=== PATIENT | female | born 1990 | race Two or more races ===

== ENCOUNTER 2019-04-01 09:19 | Emergency (ER) | payer SELFPAY ==
[2019-04-01 09:31] VITALS: BP 129/82; PULSE 100; RESP 20; TEMP 37.7; O2SAT 100
--- NOTE | 2019-04-01 11:48 | ED.URI ---
HPI - URI/Sore Throat General Chief Complaint: Upper Respiratory Infection Stated Complaint: COUGH/BURNING/CONGESTION/FEVER Source: patient and RN notes reviewed Mode of arrival: ambulatory Limitations: no limitations History of Present Illness HPI Narrative: The patient, a smoker/occasional drinker, presents with a 5-day history of chills and fever associated with scantily productive cough. No wheeze, earache, sore throat. Symptoms mild, worse upon awakening the morning Related Data Home Medications Medication Instructions Recorded Confirmed ibuprofen 200 mg PO Q6H PRN 04/01/19 04/01/19 [id number]-[id number]-guaifen 2 tablet PO Q4-6H PRN 04/01/19 04/01/19 [Cold and Flu Severe] Allergies Allergy/AdvReac Type Severity Reaction Status Date / Time No Known Allergies Allergy Verified 04/01/19 09:39 Review of Systems Review of Systems: Narrative: General/Constitutional: No weight loss,fever Eyes: N0: Redness,discharge Ears/Nose/Throat: No: Epistaxis,ear discharge Respiratory: Denies: Hemoptysis Gastrointestinal: No Vomiting, Bleeding-rectal Skin: No Lumps, eruption PMFSH Comments At time of signature, agree with nursing past medical, surgical, social and family history. There is no relevant family history pertinent to the presenting complaint Exam Narrative: Exam Narrative: General Appearance: Well nourished, Conjunctiva clear Ears: Auditory canal normal, TM normal Nose: Rhinorrhea, Mucousal erythema Throat/ neck: MM moist, Uvula midline, Pharyngeal erythema Supple, Respiratory: No respiratory distress, Breath sounds equal, Clear to auscultation Cardiovascular: RRR, Musculoskeletal: Non tender, warm, Dry Neurological: A&O x3, Normal affect Course Vital Signs Vital signs: Vital Signs Temperature 99.9 F H 04/01/19 09:31 Pulse Rate 100 04/01/19 09:31 Respiratory Rate 04/01/19 09:31 Blood Pressure 129/82 04/01/19 09:31 Pulse Oximetry 100 04/01/19 09:31 Temperature 99.9 F H 04/01/19 09:31 Pulse Rate 100 04/01/19 09:31 Respiratory Rate 04/01/19 09:31 Blood Pressure 129/82 04/01/19 09:31 Pulse Oximetry 100 04/01/19 09:31 Discharge Plan Discharge Clinical Impression: Upper respiratory infection Qualifiers: URI type: acute laryngotracheitis Qualified Code(s): J04.2 - Acute laryngotracheitis Patient Disposition: Home, Self-Care Condition: Stable Instructions: Antibiotic Form Prescriptions: New azithromycin 250 mg tablet See Rx Instructions .ROUTE .COMPLEX Qty: 6 RF: 0 benzonatate [Tessalon Perles] 100 mg capsule 100 mg PO TID Qty: 20 RF: 1 codeine-guaifenesin 10-100 mg/5 mL liquid 7.5 ml PO Q6H PRN (Reason: cough) Qty: 118 RF: 0 No Action ibuprofen 200 mg Tablet 200 mg PO Q6H PRN (Reason: Fever) RF: 0 Cold and Flu Severe [id number] mg Tablet 2 tablet PO Q4-6H PRN (Reason: Cold Symptoms) RF: 0 Follow-up/Referrals: PHYSICIAN,COMPUTATIONAL LINGUIST [Primary Care Provider] - Stand Alone Forms: Work/School Release IP Discharge Date/Time: 04/01/19 10:31
== END 2019-04-01 10:31 | disposition home or self-care (01) ==
PROVIDERS: Emergency Provider Emergency Medicine
DX: J04.2 Acute laryngotracheitis (principal)
CPT/HCPCS: 99213; G0463